=== PATIENT | male | born 1980 | race Caucasian/White ===

== ENCOUNTER 2019-07-15 10:21 | Emergency (ER) | payer BC ==
[~2019-07-15] VITALS: Ht 172.7 cm; Wt 80.7 kg
[2019-07-15 10:25] VITALS: BP 156/104
--- NOTE | 2019-07-15 10:35 | NUR ---
PT C/O HIGH BLOOD PRESSURE, DIAPHORETIC. CHECKED HIS VITALS AT HIS WORK AT [employer] BP 161/110, AND HR 109. PT ALSO HAS A COMPLAINT ABOUT LEG PAIN. PT HIT HIS RIGHT LEG X 1 WEEK AGO, HAS BRUISING. PATIENT STATES PAIN OF 3/10 AT THIS TIME; VSS; PATIENT POSITIONED FOR COMFORT; HOB ELEVATED; BEDRAILS UP X1; BED DOWN. ER MD MADE AWARE OF PT STATUS.
--- NOTE | 2019-07-15 10:38 | NUR ---
TO ED07, AMBULATORY.
[2019-07-15] MEDS ORDERED: LORazepam 1 MG TAB PO ONE (11:05)
[2019-07-15 11:25] VITALS: BP 143/96
--- NOTE | 2019-07-15 11:25 | NUR ---
hebertr, pt reports "i feel much better"
--- NOTE | 2019-07-15 11:25 | NUR ---
Patient discharged with v/s stable. Written and verbal after care instructions given and explained. Patient alert, oriented and verbalized understanding of instructions. Ambulatory with steady gait. All questions addressed prior to discharge. ID band removed. Patient advised to follow up with PMD. Rx of xanax given. Patient educated on indication of medication including possible reaction and side effects. Opportunity to ask questions provided and answered. Patient states his will be driving him home.
== END 2019-07-15 11:25 | disposition home or self-care (01) ==
LOC: MED 10:21
DX: I10 Essential (primary) hypertension (principal); F10.120 Alcohol abuse with intoxication, uncomplicated; Y90.9 Presence of alcohol in blood, level not specified
CPT/HCPCS: 82948; 99283